=== PATIENT | male | born 1995 | race Native Hawaiian/Other Pacific Islander ===

== ENCOUNTER 2019-07-28 07:15 | Emergency (ER) | payer SELFPAY ==
[~2019-07-28] VITALS: Ht 187.9 cm; Wt 111.0 kg
--- NOTE | 2019-07-28 07:48 | ED Headache ---
General Chief Complaint: Head/Cervical Problems Stated Complaint: HEADACHE Nursing Triage Note: PT REPORTS HE HAS STREP AND HAS BEEN ON ANTIBIOTICS FOR 2 DAYS AND HE KEEPS WAKING UP WITH HEADACHES. HE REPORTS HE IS TRYING TO QUIT SMOKING AND HE WENT FROM A PACK AND HALF A DAY TO 3-4 CIGARETTES A DAY IN THE PAST 3 DAYS. Nursing Sepsis Screen: No Definite Risk History of Present Illness Date Seen by Provider: Jul 28, 2019 Time Seen by Provider: 07:44 Initial Comments The patient is a 24-year-old male. He was seen 2 days ago and a walk-in clinic was diagnosed as having strep throat and was placed on antibiotics. At about the same time he decided to attempt a smoking cessation program. He has cut from about one pack and a half of cigarettes per day to 3-4 cigarettes per day over this same time. He reports that he has been awakening with headaches. He notes no fever or sweats. There is no neck pain. He denies blurring of vision or stiff neck. Yesterday he tried some ibuprofen with varying dosages. He did not note significant relief. Severity/Quality: mild, moderate Location: frontal Prior Headaches/Recent Trauma: no recent headache/trauma Allergies and Home Medications Allergies Coded Allergies: No Known Drug Allergies (Unverified , 07/28/19) Patient Home Medication List Home Medication List Reviewed: Yes Review of Systems Review of Systems Constitutional: see HPI Eyes: No Symptoms Reported Ears, Nose, Mouth, Throat: no symptoms reported Respiratory: no symptoms reported Cardiovascular: no symptoms reported Gastrointestinal: no symptoms reported Genitourinary: no symptoms reported Musculoskeletal: no symptoms reported Skin: no symptoms reported Psychiatric/Neurological: No Symptoms Reported Past Gmgsqpq-Oqbrba-Zubqaf Hx Patient Social History Alcohol Use: Denies Use Recreational Drug Use: No Smoking Status: Current Everyday Smoker 2nd Hand Smoke Exposure: No Recent Foreign Travel: No Contact w/Someone Who Travel: No Recent Infectious Disease Expo: No Physical Abuse: No Sexual Abuse: No Mistreated: No Fear: No Seasonal Allergies Seasonal Allergies: No Past Medical History Surgeries: No Respiratory: No Cardiac: No Neurological: No Genitourinary: No Gastrointestinal: No Musculoskeletal: No Endocrine: No HEENT: No Cancer: No Psychosocial: No Integumentary: No Physical Exam Vital Signs Vital Signs - First Documented 07/28/19 07:29 Temp 35.8 Pulse 82 Resp 18 B/P (MAP) 138/88 (105) O2 Delivery Room Air Capillary Refill : Less Than 3 Seconds Height, Weight, BMI Height: '" Weight: lbs. oz. kg; 31.00 BMI Method: General Appearance: mild distress HEENT: normal ENT inspection, TMs normal, pharyngeal erythema Neck: non-tender, full range of motion, supple, normal inspection Cardiovascular: normal peripheral pulses, regular rate, rhythm, no edema, no gallop, no JVD, no murmur Respiratory: chest non-tender, lungs clear, normal breath sounds, no respiratory distress, no accessory muscle use Gastrointestinal: normal bowel sounds, non tender, soft, no organomegaly, no pulsatile mass Comments No nuchal rigidity. No skin lesions. Progress/Results/Core Measures Results/Orders Lab Results Laboratory Tests Test 07/28/19 07:47 Range/Units White Blood Count 7.1 4.3-11.0 10^3/uL Red Blood Count 4.85 4.35-5.85 10^6/uL Hemoglobin 14.3 13.3-17.7 G/DL Hematocrit 42 40-54 % Mean Corpuscular Volume 87 80-99 FL Mean Corpuscular Hemoglobin 29 25-34 PG Mean Corpuscular Hemoglobin Concent 34 32-36 G/DL Red Cell Distribution Width 12.3 10.0-14.5 % Platelet Count 286 130-400 10^3/uL Mean Platelet Volume 9.7 7.4-10.4 FL Neutrophils (%) (Auto) 65 42-75 % Lymphocytes (%) (Auto) 28 12-44 % Monocytes (%) (Auto) 6 0-12 % Eosinophils (%) (Auto) 0 0-10 % Basophils (%) (Auto) 0 0-10 % Neutrophils # (Auto) 4.6 1.8-7.8 X 10^3 Lymphocytes # (Auto) 2.0 1.0-4.0 X 10^3 Monocytes # (Auto) 0.4 0.0-1.0 X 10^3 Eosinophils # (Auto) 0.0 0.0-0.3 10^3/uL Basophils # (Auto) 0.0 0.0-0.1 10^3/uL Erythrocyte Sedimentation Rate 26 H 0-15 MM/HR My Orders Orders - JENNY TORRES MD Cbc With Automated Diff (07/28/19 07:42) Erythrocyte Sedimentation Rate (07/28/19 07:42) Cbc With Automated Diff (07/28/19 07:50) Erythrocyte Sedimentation Rate (07/28/19 07:50) Vital Signs/I&O 07/28/19 07:29 Temp 35.8 Pulse 82 Resp 18 B/P (MAP) 138/88 (105) O2 Delivery Room Air Blood Pressure Mean: 105 Departure Communication (Admissions) 0848 CBC shows a normal white count. Sedimentation rate was modestly elevated at 25/15. Impression Primary Impression: Headache Additional Impression: strep throat Disposition: 01 HOME, SELF-CARE Condition: Stable/Unchanged Departure-Patient Inst. Decision time for Depature: 08:45 Referrals: ARLEY SKAGGS MD (PCP/Family) Primary Care Physician Patient Instructions: Headache, Adult Add. Discharge Instructions: All discharge instructions reviewed with patient and/or family. Voiced understanding. Complete your antibiotic course. Take ibuprofen 6-800 mg 4 times daily for headache. Add caffeine to your ibuprofen. Continue your effort to cease smoking. It may be useful over this period of time to use nicotine patches to lessen the withdrawal effect. JENNY TORRES MD Jul 28, 2019 07:48
[2019-07-28 08:18] LABS: HEMATOCRIT 42 % (40-54); HEMOGLOBIN 14.3 G/DL (13.3-17.7); MEAN CORPUSCULAR HEMOGLOBIN 29 PG (25-34); MEAN CORPUSCULAR VOLUME 87 FL (80-99); WHITE BLOOD COUNT 7.1 10^3/uL (4.3-11.0)
[2019-07-28 08:19] LABS: BASOPHILS % (AUTO) 0 % (0-10); EOSINOPHILS % (AUTO) 0 % (0-10); LYMPHOCYTES % (AUTO) 28 % (12-44); MEAN CORPUSCULAR HGB CONC 34 G/DL (32-36); MEAN PLATELET VOLUME 9.7 FL (7.4-10.4); MONOCYTES # (AUTO) 0.4 X 10^3 (0.0-1.0); MONOCYTES % (AUTO) 6 % (0-12); NEUTROPHILS # (AUTO) 4.6 X 10^3 (1.8-7.8); NEUTROPHILS % (AUTO) 65 % (42-75); PLATELET COUNT 286 10^3/uL (130-400); RED CELL DISTRIBUTION WIDTH 12.3 % (10.0-14.5)
[2019-07-28 08:26] LABS: ERYTHROCYTE SEDIMENTATION RATE 26 MM/HR (0-15)
[2019-07-28 08:51] VITALS: BP 124/68
== END 2019-07-28 08:51 | disposition home or self-care (01) ==
LOC: ER FS 07:18
DX: R51 Headache (principal); J02.9 Acute pharyngitis, unspecified; F17.210 Nicotine dependence, cigarettes, uncomplicated
CPT/HCPCS: 36415; 85025; 85652

== ENCOUNTER 2021-06-24 12:11 | Emergency (ER) | payer MEDICAID, OTHER ==
[~2021-06-24] VITALS: Ht 187.9 cm; Wt 111.0 kg
--- NOTE | 2021-06-24 12:50 | Diagnostic Imaging Report ---
Indication: Injury to right hand, pain in 5th metacarpal region. AP, oblique, lateral views of the right hand are obtained. No fracture or acute bony abnormality is seen. Joint spaces are unremarkable. IMPRESSION: Negative right hand. Dictated by: Dictated on workstation # [id number]
--- NOTE | 2021-06-24 13:03 | ED Upper Extremity ---
General Chief Complaint: Upper Extremity Stated Complaint: RT HAND INJ Source: patient Exam Limitations: no limitations History of Present Illness Date Seen by Provider: Jun 24, 2021 Time Seen by Provider: 12:25 Initial Comments 26-year-old male with past medical history of hypertension coming in after he hurt his right hand. He is right-hand dominant. 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 This occurred at 9 AM yesterday. Today he is noticing more numbness to his right pinky that he did not have before. He is having moderate constant throbbing pain in the same region as well. Has not taken any medications for pain as of yet. Better with rest. Otherwise denying any other acute com plaints. Allergies and Home Medications Allergies Coded Allergies: No Known Drug Allergies (Unverified , 07/28/19) Patient Home Medication List Home Medication List Reviewed: Yes Review of Systems Constitutional: No fever EENTM: No blurred vision Respiratory: No cough Cardiovascular: No chest pain Gastrointestinal: No abdominal pain Genitourinary: No frequency Musculoskeletal: No back pain Skin: No rash Psychiatric/Neurological: Denies Anxiety All Other Systems Reviewed Negative Unless Noted: Yes Past Rwoqvow-Yyuhig-Frnmpw Hx Patient Social History Tobacco Use?: No Seasonal Allergies Seasonal Allergies: No Past Medical History Surgeries: No Respiratory: No Cardiac: No Neurological: No Genitourinary: No Gastrointestinal: No Musculoskeletal: No Endocrine: No HEENT: No Cancer: No Psychosocial: No Integumentary: No Physical Exam Vital Signs Capillary Refill : Height, Weight, BMI Height: '" Weight: lbs. oz. kg; 31.00 BMI Method: General Appearance: WD/WN, no apparent distress HEENT: PERRL/EOMI, normal ENT inspection, pharynx normal Neck: non-tender, full range of motion, supple, normal inspection Cardiovascular: regular rate, rhythm, no edema, no murmur Respiratory: chest non-tender, lungs clear, normal breath sounds, no respiratory distress, no accessory muscle use Gastrointestinal: normal bowel sounds, non tender, soft Back: normal inspection Shoulder: normal inspection Elbow/Forearm: normal inspection, non-tender Wrist: Yes normal inspection, Yes non-tender, Yes no evidence of injury, Yes normal ROM Hand: normal inspection, normal ROM, Right, bone tenderness (5th metacarpal) Neurologic/Tendon: other (Decreased sensation in the right lateral pinky compared to the left but otherwise normal sensation, normal motor exam specifically testing the median, ulnar, and radial nerves) Neurologic/Psychiatric: alert, normal mood/affect Skin: normal color, warm/dry Lymphatic: no adenopathy Progress/Results/Core Measures Results/Orders My Orders Orders - DOUGLAS YUAN MD Hand 3 View Right (06/24/21 12:28) Progress Progress Note : Progress Note 26-year-old male with above history coming in due to right hand pain and some tingling. ABCs were intact and vitals were stable on presentation. Physical exam with some tenderness over the fifth metacarpal on the right, no open injury. Some decrease sensation right lateral pinky compared to the left but otherwise normal motor exam. Offered the patient ibuprofen but he says he does not want anything right now. X-ray of the right hand ordered and interpreted by me showing no acute abnormalities including no fracture. I believe this is likely a transient neuropraxia from the tight rope on his hand for a while and likely will improve with time. I believe he is stable for discharge, I have recommended if he does not have the numbness improved within the next day he should follow-up with an orthopedist. He was then discharged home in stable condition with strict return precautions. Diagnostic Imaging Diagonstic Imaging: Xray Plain Films/CT/US/NM/MRI: hand Comments [facility] [place], [place] NAME: KODI GREENCHERYL Valle [facility] REC#: [id number] PT STATUS: REG ER : 1995 PHYSICIAN: DOUGLAS YUAN MD ADMIT DATE: 06/24/21/ER FS Draft Date of Exam:06/24/21 HAND 3 VIEW RIGHT Indication: Injury to right hand, pain in 5th metacarpal region. AP, oblique, lateral views of the right hand are obtained. No fracture or acute bony abnormality is seen. Joint spaces are unremarkable. IMPRESSION: Negative right hand. Dictated on workstation # [id number] Dict: 06/24/21 1247 Trans: 06/24/21 1249 [facility] [id number] Interpreted by: RIKY PASCUAL MD Electronically signed by: Departure Impression Primary Impression: Neuropraxia of ulnar Qualified Codes: S54.01XA - Injury of ulnar nerve at forearm level, right arm, initial encounter Disposition: HOME, SELF-CARE Condition: Stable Departure-Patient Inst. Decision time for Depature: 13:05 Referrals: ARLEY SKAGGS MD (PCP/Family) Primary Care Physician Patient Instructions: Common Wrist Injuries (DC) Add. Discharge Instructions: You likely have a very short-term injury to your nerve in your right hand called the ulnar nerve. This likely will improve with time. If you still have numbness within the next day or so, I would recommend you follow-up with an orthopedic surgeon. If it is progressing then also you should follow-up. You have any pain you can take ibuprofen. All discharge instructions reviewed with patient and/or family. Voiced understanding. DOUGLAS YUAN MD Jun 24, 2021 13:03
[2021-06-24 13:08] VITALS: BP 128/88
== END 2021-06-24 13:08 | disposition home or self-care (01) ==
LOC: EDUNIT# 12:11 → ER FS 12:13
DX: S54.01XA Injury of ulnar nerve at forearm level, right arm, initial encounter (principal); I10 Essential (primary) hypertension; X50.0XXA Overexertion from strenuous movement or load, initial encounter
CPT/HCPCS: 73130